=== PATIENT | female | born 1995 | race Two or more races ===

== ENCOUNTER 2023-03-15 13:40 | Outpatient (CLI) | payer OTHER ==
[~2023-03-15] VITALS: Ht 160 cm; Wt 72.6 kg
[2023-03-15] MEDS ORDERED: PRENATAL TABLE1 EAC1 PO (13:43)
[2023-03-15] MEDS ORDERED: IRON236 MG PO (13:43)
== END 2023-03-15 13:54 | disposition left against medical advice (07) ==
LOC: OBS/DEL 13:40
PROVIDERS: ATTEND Specialist
DX: O26.893 Other specified pregnancy related conditions, third trimester (principal); R10.2 Pelvic and perineal pain; Z3A.36 36 weeks gestation of pregnancy

== ENCOUNTER 2023-03-23 05:49 | Inpatient (IN) | payer OTHER ==
[~2023-03-23] VITALS: Ht 160 cm; Wt 76.2 kg
[~2023-03-23 05:49] MED LIST: IRON236 MG PO; PRENATAL TABLE1 EAC1 PO
[2023-03-23 07:08] LABS: PH,URINE 6.5 (5.0-8.0); URINE APPEARANCE Clear; URINE BILIRRUBIN Negative (NEGATIVE); URINE BLOOD Small; URINE COLOR Yellow; URINE GLUCOSE Negative (NEGATIVE); URINE LEUKOCYTE Negative; URINE NITRATE Negative; URINE PROTEIN Negative (NEGATIVE); URINE UROBILINOGEN 0.2 E.U./dl
[2023-03-23 07:12] LABS: URINE BACTERIA 531.6 uL (0.0-1933); URINE EPITHELIAL CELLS 8.3 uL (0.0-38.8); URINE RBC 0.7 uL (0.0-20.8); URINE WBC 7.8 uL (0.0-23.2)
[2023-03-23 07:13] LABS: HEMATOCRIT 31.8 % (36.0-45.00); HEMOGLOBIN 10.4 g/dL (12.0-15.00); MEAN CELL VOLUME 73.4 fL (80.00-100.00); MEAN CORPUSCULAR HEMOGLOBIN 24.1 pg (27.00-32.0); MEAN CORPUSCULAR HGB CONC 32.8 g/dl (32.0-36.0); PLATELET COUNT 161 K/uL (150-450); RED BLOOD COUNT 4.34 M/uL (4.00-6.00); RED CELL DISTRIBUTION WIDTH 19.9 % (11.5-14.5)
[2023-03-24 01:05] LABS: HEMATOCRIT 28.9 % (36.0-45.00); MEAN CELL VOLUME 73.8 fL (80.00-100.00); PLATELET COUNT 143 K/uL (150-450); RED BLOOD COUNT 3.92 M/uL (4.00-6.00); RED CELL DISTRIBUTION WIDTH 19.7 % (11.5-14.5)
[2023-03-24 01:08] LABS: HEMOGLOBIN 9.3 g/dL (12.0-15.00); MEAN CORPUSCULAR HEMOGLOBIN 23.7 pg (27.00-32.0)
== END 2023-03-25 16:28 | disposition home or self-care (01) | DRG 807 ==
LOC: OBS/DEL 05:49 → LDR 07:25 → OB/GYN 07:25 → OBS/DEL 07:25 → OB/GYN 13:40
PROVIDERS: Obstetrics & Gynecology; ADMIT Specialist; ATTEND Specialist
PROC: 10E0XZZ Delivery of Products of Conception, External Approach (ICD-10-PCS; principal; 2023-03-23)
PROC: 0HQ9XZZ Repair Perineum Skin, External Approach (ICD-10-PCS; 2023-03-23)
PROC: 4A1HXCZ Monitoring of Products of Conception, Cardiac Rate, External Approach (ICD-10-PCS; 2023-03-23)
DX: O70.1 Second degree perineal laceration during delivery (principal); Z37.0 Single live birth; Z3A.37 37 weeks gestation of pregnancy; Z20.822 Contact with and (suspected) exposure to COVID-19